=== PATIENT | female | born 1975 | race African-American/Black ===

== ENCOUNTER 2019-11-17 23:13 | Emergency (ER) | payer MEDICAID ==
[~2019-11-17] VITALS: Ht 157.5 cm; Wt 68.0 kg
[2019-11-17 23:29] VITALS: Ht 157.5 cm; Wt 68.0 kg
[2019-11-18 00:40] LABS: BASOPHIL % 0.7 % (0-2); PLATELET COUNT 228 x10^3mcL (130-400); RED CELL DISTRIBUTION WIDTH 13.5 % (11.5-14.5)
[2019-11-18 00:50] LABS: ALBUMIN 4.1 g/dL (3.4-5.0); ALKALINE PHOSPHATASE 45 U/L (46-116); ALT/SGPT 19 U/L (14-59); AST/SGOT 20 U/L (15-37); BILIRUBIN TOTAL 0.7 mg/dL (0.20-1.00); CALCIUM 9.4 mg/dL (8.5-10.1); CARBON DIOXIDE 20.5 mmol/L (21-32); CHLORIDE SERUM 102 mmol/L (98-107); CREATININE SERUM 0.5 mg/dL (0.6-1.0); GFR1 > 60 mL/min; GLUCOSE SERUM 117 mg/dL (74-106); POTASSIUM SERUM 3.4 mmol/L (3.5-5.1); SODIUM SERUM 134 mmol/L (136-145); TOTAL PROTEIN, SERUM 7.6 g/dL (6.4-8.2)
[2019-11-18 02:31] VITALS: BP 110/68
== END 2019-11-18 02:32 | disposition home or self-care (01) ==
LOC: ED 23:13
PROVIDERS: Emergency Medicine
DX: F41.9 Anxiety disorder, unspecified (principal); K21.9 Gastro-esophageal reflux disease without esophagitis
CPT/HCPCS: Q0092